=== PATIENT | female | born 1980 | race Caucasian/White ===

== ENCOUNTER 2017-04-01 16:14 | Emergency (ER) | payer BC, OTHER ==
[~2017-04-01] VITALS: Ht 167.6 cm; Wt 85.3 kg
[2017-04-01 16:20] VITALS: BP 138/87; PULSE 88; TEMP 37.3; O2SAT 96; Ht 167.6 cm; Wt 85.3 kg
--- NOTE | 2017-04-01 16:44 | DIAGNOSTIC IMAGING REPORT ---
RIGHT SHOULDER MIN 2 VIEWS ROUTINE CLINICAL HISTORY: right shoulder pain Right COMPARISON: None. DISCUSSION: The bones and joint spaces appear intact. There is no evidence of fracture, dislocation or bony disease. There is no evidence for soft tissue swelling. IMPRESSION: Negative study. Electronically signed by: Kosta Anaya M.D. 04/01/2017 4:43 PM Dictated Date/Time: 04/01/2017 4:42 PM
[2017-04-01] MEDS ORDERED: HYDR-5688 PO (17:09)
--- NOTE | 2017-04-01 21:43 | EMERGENCY ROOM VISIT NOTE ---
ED Visit Note First contact with patient: 16:22 CHIEF COMPLAINT: Shoulder pain HISTORY OF PRESENT ILLNESS: This 37-year-old female patient presents to the emergency department complaining of pain in the right shoulder slowly worsening over the past 2 weeks. The patient states that she had a fall on an outstretched arm a few weeks ago, and this seemed to be the start of her symptoms. There is currently moderate limitation of motion of the arm because of the pain. The pain is moderate, constant and increases with motion of the hand and arm. The patient states the pain is dull and 8/10. The patient has taken intermittent Advil with some relief of the pain. No previous significant previous shoulder disease or injury. No numbness or tingling. No neck and no back pain. No chest pain or shortness of breath. No abdominal pain or nausea/ vomiting. No cough. REVIEW OF SYSTEMS: A 6 system review of systems was performed with positives and pertinent negatives in the HPI. ALLERGIES: No known allergies MEDICATIONS: No chronic medication PMH: No chronic medical disease SOCIAL HISTORY: Employed PHYSICAL EXAM: Vital Signs: Reviewed nurse's notes, vital signs stable. GENERAL : White female, in no acute distress, but appears to be in pain, well-developed , well-nourished. MUSCULOSKELETAL: There is no deformity in the contour of the right shoulder and there are no mynor deformities noted. There is no sulcus sign. There is tenderness over the supraspinatus into the lateral deltoid on the right. The patient's range of motion is limited to abduction. Supraspinatus strength 1/5. There is no clavicle tenderness. No tenderness of the humerus, elbow, wrist, or hand. Back Order Clerk strength 5/5. Radial pulse 2+. NECK: No tenderness to palpation over the cervical spine. HEART: Regular rate and rhythm without murmurs gallops or rubs. LUNGS: Clear to auscultation bilaterally without wheezes, rales or rhonchi. No accessory muscle use. No retractions. NEURO: The patient is alert and oriented to person, place, and time. Normal sensation to light and sharp touch. Capillary refill less than 2 seconds. RIGHT SHOULDER MIN 2 VIEWS ROUTINE CLINICAL HISTORY: right shoulder pain Right COMPARISON: None. DISCUSSION: The bones and joint spaces appear intact. There is no evidence of fracture, dislocation or bony disease. There is no evidence for soft tissue swelling. IMPRESSION: Negative study. EMERGENCY DEPARTMENT COURSE: Physical exam and history were performed. Nursing notes and EMR were reviewed. The patient appears to have suffered a right shoulder injury a few weeks ago with slowly escalating pain. X-ray was performed and read by myself and radiology as showing no acute process. Clinically I suspect the patient may have some level of rotator cuff injury. The patient will be given a sling and a short course of Vicodin. She will also be given information to follow with orthopedics. She was otherwise invited back to the ER with any new, worsening, or concerning symptoms. Current/Historical Medications Scheduled PRN Hydrocodone/Acetaminophen 5MG/325MG ([place] 5MG/325MG), 1-2 TABLET PO Q6 PRN for Pain Allergies Coded Allergies: No Known Allergies (Unverified , 04/01/17) Vital Signs Date Time Temp Pulse Resp B/P Pulse Ox O2 Delivery O2 Flow Rate FiO2 04/01/17 16:20 37.3 88 20 138/87 96 Room Air Departure Information Impression Primary Impression: Injury of right shoulder Dispostion Home / Self-Care Condition FAIR Prescriptions Hydrocodone/Acetaminophen 5MG/325MG ([place] 5MG/325MG) Tab 1-2 TABLET PO Q6 Y for Pain, #15 TAB For Initial Treatment Prov: Yasir Salas PA-C 04/01/17 Referrals Kulwant Matos M.D. Forms HOME CARE DOCUMENTATION FORM, IMPORTANT VISIT INFORMATION Patient Instructions My [facility] Additional Instructions You were seen and evaluated today on an emergency basis only. This is not a substitute for, or an effort to provide, complete comprehensive medical care. It is not possible to recognize and treat all injuries or illnesses in a single emergency department visit. For this reason it is recommended that you followup with [facility] , Dr. Matos's office, in the next week for ongoing care and evaluation. For baseline pain relief you may alternate ibuprofen and acetaminophen every 4 hours for pain control. Take 600 mg ibuprofen (Advil) and then 4 hours later take 1000 mg acetaminophen (Tylenol). Do not take more than 3000 mg acetaminophen in a single day. [place] (hydrocodone/acetaminophen) 5/325 mg ONE or TWO every 6 hours as needed for worsening breakthrough pain. Do not drink or drive on [place]. This medication will likely make you tired. Do not take [place] and Tylenol at the same time as both contain acetaminophen. [place] may cause constipation. You may wish to take an [id number] stool softener like Colace if this occurs. Wear your arm sling for comfort. Practice range of motion exercises throughout the day. You are welcome to return to the emergency department anytime with new, worsening, or concerning symptoms.
== END 2017-04-01 17:38 | disposition home or self-care (01) ==
LOC: C.EDB 16:15 → C.EDD 17:38
DX: S49.91XA Unspecified injury of right shoulder and upper arm, initial encounter (principal); W19.XXXA Unspecified fall, initial encounter